=== PATIENT | male | born 1990 | race Caucasian/White ===

== ENCOUNTER 2018-09-06 16:53 | Emergency (ER) | payer SELFPAY ==
[~2018-09-06] VITALS: Ht 170.2 cm; Wt 64.0 kg
[2018-09-06] MEDS ORDERED: HYDROCODONE/ACETAMINOPHEN 5-325 MG TABLET PO ONE (17:45)
[2018-09-06] MEDS ORDERED: KETOROLAC TROMETHAMINE 30 MG/ML VIAL IVP ONE (17:45)
[2018-09-06 18:07] LABS: BASOPHILS % (AUTO) 0.6 % (0.0-2.0); EOSINOPHILS % (AUTO) 0.3 % (1.0-6.0); HEMATOCRIT 39.9 % (41-53); HEMOGLOBIN 13.5 g/dL (13.5-17.5); MEAN CORPUSCULAR HEMOGLOBIN 28.9 pg (26.0-34.0); MEAN CORPUSCULAR HGB CONC 33.9 G/dL (31.0-37.0); MEAN CORPUSCULAR VOLUME 85 fL (80-100); MONOCYTES # (AUTO) 0.8 K/uL (0.1-1.0); MONOCYTES % (AUTO) 6.8 % (2.0-9.0); NEUTROPHILS # (AUTO) 7.6 K/uL (1.8-7.7); NEUTROPHILS % (AUTO) 66.3 % (40.0-70.0); PLATELET COUNT (AUTO) 370 K/uL (150-450); RED BLOOD CELL COUNT(AUTO) 4.69 MIL/uL (4.50-5.90); RED CELL DISTRIBUTION WIDTH 12.2 % (11.5-14.5)
[2018-09-06 18:20] LABS: ANION GAP 10 mmol/L (8-16); CALCIUM, TOTAL 8.9 mg/dL (8.8-10.5); CARBON DIOXIDE 25 mmol/L (22-29); CHLORIDE 100 mmol/L (98-107); GLOMERULAR FILTR. RATE CALC > 60 mL/min (>60); GLUCOSE,RANDOM 93 mg/dL (70-110); POTASSIUM 3.4 mmol/L (3.5-5.1); SODIUM SERUM 135 mmol/L (136-145); UREA NITROGEN, BLOOD 9 mg/dL (7-18)
[2018-09-06 18:25] LABS: ALANINE AMINOTRANSFERASE 18 U/L (12-78); ALBUMIN 3.1 g/dL (3.4-5.0); ALKALINE PHOSPHATASE 77 U/L (46-116); ASPARTATE AMINOTRANSFERASE 11 U/L (15-37); BILIRUBIN,TOTAL 0.2 mg/dL (0.1-1.0); TOTAL PROTEIN, SERUM 7.5 g/dL (6.4-8.2)
[2018-09-06 18:39] LABS: APPEARANCE,URINE CLOUDY (CLEAR); BILIRUBIN,URINE NEGATIVE (NEGATIVE); GLUCOSE, URINE (UA) NEGATIVE (NEGATIVE); KETONES,URINE NEGATIVE (NEGATIVE); LEUKOCYTE ESTERASE ,URINE MODERATE (NEGATIVE); NITRATE,URINE NEGATIVE (NEGATIVE); OCCULT BLOOD,URINE MODERATE (NEGATIVE); PH,URINE 8.5 (5.0-8.0); PROTEIN,URINE SEE CONFIRM (NEGATIVE); UROBILINOGEN,URINE 0.2 mg/dL (<=1.0)
[2018-09-06 18:45] LABS: SULFOSALICYLIC ACID,URINE 2+ (Negative)
[2018-09-06] MEDS ORDERED: LEVOFLOXACIN 500 MG TABLET PO ONE (18:45)
[2018-09-06] MEDS ORDERED: CefTRIAXone 1 GM/DEXTROSE 50 ML IV ONE (18:45)
[2018-09-06 18:47] LABS: WBC,URINE 26-50 /HPF (0-5)
[2018-09-06 18:48] LABS: BACTERIA,URINE Few /HPF (None Seen); SQUAMOUS EPITHELIAL CELL,UR Rare /LPF (None Seen)
[2018-09-06 20:30] VITALS: BP 129/76
== END 2018-09-06 20:43 | disposition home or self-care (01) ==
LOC: EMS 16:54
DX: N45.1 Epididymitis (principal); N34.2 Other urethritis; F12.90 Cannabis use, unspecified, uncomplicated; F15.90 Other stimulant use, unspecified, uncomplicated; F17.210 Nicotine dependence, cigarettes, uncomplicated
CPT/HCPCS: 36415; 76870; 80053; 81001; 85025; 87086; 87491; 87591; 96365; 96375; 99284; J0696; J1885

== ENCOUNTER 2020-10-21 20:46 | Emergency (ER) | payer MEDICAID ==
[~2020-10-21] VITALS: Ht 165.1 cm; Wt 65.9 kg
[2020-10-21] MEDS ORDERED: IBUPROFEN 400 MG TABLET PO ONE (21:00)
[2020-10-21 21:18] LABS: APPEARANCE,URINE CLOUDY (CLEAR); BILIRUBIN,URINE NEGATIVE (NEGATIVE); GLUCOSE, URINE (UA) NEGATIVE (NEGATIVE); KETONES,URINE TRACE mg/dL (NEGATIVE); LEUKOCYTE ESTERASE ,URINE MODERATE (NEGATIVE); NITRATE,URINE NEGATIVE (NEGATIVE); OCCULT BLOOD,URINE MODERATE (NEGATIVE); PROTEIN,URINE SEE CONFIRM (NEGATIVE); UROBILINOGEN,URINE 0.2 mg/dL (<=1.0)
[2020-10-21 21:55] LABS: SULFOSALICYLIC ACID,URINE 2+ (Negative)
[2020-10-21 21:56] LABS: BACTERIA,URINE Few /HPF (None Seen); RBC,URINE 26-50 /HPF (0-2); SQUAMOUS EPITHELIAL CELL,UR Few /LPF (None Seen); WBC,URINE 51-100 /HPF (0-5)
[2020-10-21] MEDS ORDERED: KETOROLAC TROMETHAMINE 30 MG/ML VIAL IM ONE (22:15)
[2020-10-21] MEDS ORDERED: MORPHINE SULFATE 4 MG/ML SYRINGE IVP ONE (22:30)
[2020-10-21] MEDS ORDERED: SODIUM CHLORIDE 0.9% 1,000 ML IV ONE (22:30)
[2020-10-21] MEDS ORDERED: 0.9% SODIUM CHLORIDE 10 ML SYRINGE IVP PRN (22:30)
[2020-10-21] MEDS ORDERED: ONDANSETRON HCL 4 MG/2 ML VIAL IVP ONE (22:30)
[2020-10-21 23:15] LABS: BASOPHILS % (AUTO) 0.3 % (0.0-2.0); EOSINOPHILS % (AUTO) 0.4 % (1.0-6.0); HEMATOCRIT 40.5 % (41-53); HEMOGLOBIN 13.6 g/dL (13.5-17.5); LYMPHOCYTES # (AUTO) 4.2 K/uL (1.0-4.8); LYMPHOCYTES % (AUTO) 29.1 % (22.0-44.0); MEAN CORPUSCULAR HEMOGLOBIN 29.7 pg (26.0-34.0); MEAN CORPUSCULAR HGB CONC 33.5 G/dL (31.0-37.0); MEAN CORPUSCULAR VOLUME 89 fL (80-100); MONOCYTES # (AUTO) 1.2 K/uL (0.1-1.0); MONOCYTES % (AUTO) 7.9 % (2.0-9.0); NEUTROPHILS % (AUTO) 62.3 % (40.0-70.0); PLATELET COUNT (AUTO) 333 K/uL (150-450); RED BLOOD CELL COUNT(AUTO) 4.57 MIL/uL (4.50-5.90); RED CELL DISTRIBUTION WIDTH 13.2 % (11.5-14.5)
[2020-10-21 23:24] LABS: ANION GAP 13 mmol/L (8-16); CALCIUM, TOTAL 8.9 mg/dL (8.8-10.5); CARBON DIOXIDE 24 mmol/L (22-29); CHLORIDE 99 mmol/L (98-107); CREATININE 0.94 mg/dL (0.60-1.30); GLOMERULAR FILTR. RATE CALC > 60 mL/min (>60); GLUCOSE,RANDOM 103 mg/dL (70-110); POTASSIUM 3.7 mmol/L (3.5-5.1); SODIUM SERUM 136 mmol/L (136-145); UREA NITROGEN, BLOOD 16 mg/dL (7-18)
[2020-10-21 23:27] LABS: PROTHROMBIN TIME 10.8 SEC (9.4-11.6)
[2020-10-21 23:30] LABS: ALANINE AMINOTRANSFERASE 47 U/L (12-78); ALBUMIN 4.2 g/dL (3.4-5.0); ALKALINE PHOSPHATASE 75 U/L (46-116); ASPARTATE AMINOTRANSFERASE 23 U/L (15-37); BILIRUBIN,TOTAL 0.4 mg/dL (0.1-1.0); TOTAL PROTEIN, SERUM 7.5 g/dL (6.4-8.2)
[2020-10-21] MEDS ORDERED: LEVOFLOXACIN 250 MG TABLET PO ONE (23:30)
[2020-10-21] MEDS ORDERED: LIDOCAINE/PF 1% 2 ML VIAL IM ONE (23:30)
[2020-10-21] MEDS ORDERED: CefTRIAXone SODIUM 1 GM/VIAL IM ONE (23:30)
[2020-10-21 23:38] LABS: LACTIC ACID < 0.3 mmol/L (0.4-2.0)
[2020-10-21 23:50] VITALS: BP 135/82
== END 2020-10-22 00:17 | disposition home or self-care (01) ==
LOC: EMS 20:46
DX: N34.2 Other urethritis (principal); N45.2 Orchitis; N45.1 Epididymitis; F17.210 Nicotine dependence, cigarettes, uncomplicated; F12.90 Cannabis use, unspecified, uncomplicated; F15.90 Other stimulant use, unspecified, uncomplicated
CPT/HCPCS: 36415; 76870; 80053; 81001; 83605; 85025; 85610; 87040; 87086; 87491; 87591; 96361; 96372; 96374; 96375; 99285; J0696; J2270; J2405; J3490; 81002; 87205

== ENCOUNTER 2020-12-02 19:26 | Inpatient (IN) | payer MEDICAID, OTHER ==
[~2020-12-02] VITALS: Ht 165.1 cm; Wt 67.4 kg
[2020-12-02 20:10] LABS: BASOPHILS % (AUTO) 0.4 % (0.0-2.0); EOSINOPHILS % (AUTO) 1.3 % (1.0-6.0); HEMATOCRIT 39.2 % (41-53); HEMOGLOBIN 13.4 g/dL (13.5-17.5); LYMPHOCYTES # (AUTO) 2.5 K/uL (1.0-4.8); LYMPHOCYTES % (AUTO) 48.3 % (22.0-44.0); MEAN CORPUSCULAR HEMOGLOBIN 30.8 pg (26.0-34.0); MEAN CORPUSCULAR HGB CONC 34.1 G/dL (31.0-37.0); MEAN CORPUSCULAR VOLUME 90 fL (80-100); MONOCYTES # (AUTO) 0.5 K/uL (0.1-1.0); MONOCYTES % (AUTO) 9.8 % (2.0-9.0); NEUTROPHILS # (AUTO) 2.1 K/uL (1.8-7.7); NEUTROPHILS % (AUTO) 40.2 % (40.0-70.0); PLATELET COUNT (AUTO) 235 K/uL (150-450); RED BLOOD CELL COUNT(AUTO) 4.33 MIL/uL (4.50-5.90); RED CELL DISTRIBUTION WIDTH 13.3 % (11.5-14.5)
[2020-12-02 20:18] LABS: ANION GAP 9 mmol/L (8-16); CALCIUM, TOTAL 8.8 mg/dL (8.8-10.5); CARBON DIOXIDE 28 mmol/L (22-29); CHLORIDE 102 mmol/L (98-107); CREATININE 1.01 mg/dL (0.60-1.30); GLOMERULAR FILTR. RATE CALC > 60 mL/min (>60); GLUCOSE,RANDOM 89 mg/dL (70-110); SODIUM SERUM 139 mmol/L (136-145); UREA NITROGEN, BLOOD 12 mg/dL (7-18)
[2020-12-02 20:24] LABS: ALANINE AMINOTRANSFERASE 39 U/L (12-78); ALBUMIN 4.3 g/dL (3.4-5.0); ALKALINE PHOSPHATASE 78 U/L (46-116); ASPARTATE AMINOTRANSFERASE 26 U/L (15-37); BILIRUBIN,TOTAL 0.4 mg/dL (0.1-1.0); TOTAL PROTEIN, SERUM 7.2 g/dL (6.4-8.2)
[2020-12-02 20:29] LABS: COVID AG,FIA SOURCE NASOPHARYNGEAL
[2020-12-02] MEDS ORDERED: ACETAMINOPHEN 325 MG TABLET PO PRN ×2 (20:45→21:30)
[2020-12-02] MEDS ORDERED: ONDANSETRON HCL 4 MG/2 ML VIAL IVP PRN ×2 (20:45→21:30)
[2020-12-02] MEDS ORDERED: DOLU50TA PO (20:47)
[2020-12-02] MEDS ORDERED: TENO300 PO (20:47)
[2020-12-02] MEDS ORDERED: GABA-1181 PO (20:47)
[2020-12-02] MEDS ORDERED: CEPH500C3 PO (20:47)
[2020-12-02] MEDS ORDERED: HYDR-4031 PO (20:47)
[2020-12-02] MEDS ORDERED: HYDR50CA9 PO (20:47)
[2020-12-02] MEDS ORDERED: EPIV150 PO (20:49)
[2020-12-02] MEDS ORDERED: 0.9% SODIUM CHLORIDE 10 ML SYRINGE IVP PRN (21:30)
[2020-12-02 22:00] VITALS: BP 126/72
[2020-12-03] MEDS: HEPARIN SODIUM,PORCINE 5,000 UNITS/ML VIAL SQ SCH ×5 (00:15→23:21)
[2020-12-03 05:14] VITALS: BP 121/60
[2020-12-03 06:59] LABS: THYROID STIMULATING HORMONE 0.87 uIU/mL (0.36-3.74)
[2020-12-03] MEDS: CEPHALEXIN MONOHYDRATE 500 MG CAPSULE PO SCH ×5 (07:53→23:18)
[2020-12-03 08:02] VITALS: BP 108/58
[2020-12-03] MEDS: GABAPENTIN 300 MG CAPSULE PO SCH ×4 (08:34→20:09)
[2020-12-03] MEDS: HydrOXYzine PAMOATE 25 MG CAPSULE PO SCH ×2 (08:34→20:09)
[2020-12-03] MEDS: TENOFOVIR DISOPROXIL FUMARATE 300 MG TABLET PO SCH (08:35)
[2020-12-03] MEDS: DOLUTEGRAVIR SODIUM 50 MG TABLET PO SCH (08:35)
[2020-12-03] MEDS: HydrOXYzine PAMOATE 50 MG CAPSULE PO SCH ×2 (09:27→20:09)
[2020-12-03 10:07] LABS: AMPHET/METH SCREEN,URINE NEGATIVE (NEGATIVE); BARBITURATE SCREEN, URINE NEGATIVE (NEGATIVE); BENZODIAZEPINES SCREEN,URINE NEGATIVE (NEGATIVE); CANNABINOID SCREEN,URINE NEGATIVE (NEGATIVE); COCAINE SCREEN,URINE NEGATIVE (NEGATIVE); METHADONE SCREEN, URINE NEGATIVE (NEGATIVE); OPIATE SCREEN,URINE NEGATIVE (NEGATIVE)
[2020-12-03 10:08] LABS: PHENCYCLIDINE SCREEN,URINE NEGATIVE (NEGATIVE)
[2020-12-03] MEDS: SERTRALINE HCL 50 MG TABLET PO SCH (13:25)
[2020-12-03 19:35] VITALS: BP 110/60
[2020-12-03] MEDS: TraZODone HCL 50 MG TABLET PO PRN (20:08)
[2020-12-04 04:40] VITALS: BP 103/59
[2020-12-04] MEDS: CEPHALEXIN MONOHYDRATE 500 MG CAPSULE PO SCH ×4 (04:40→22:57)
[2020-12-04 07:29] VITALS: BP 110/58
[2020-12-04] MEDS: NEOMYCIN/BACITRACIN/POLYMYXIN B 30 GM OINTMENT TP SCH (08:32)
[2020-12-04] MEDS: HEPARIN SODIUM,PORCINE 5,000 UNITS/ML VIAL SQ SCH ×3 (08:32→23:00)
[2020-12-04] MEDS: DOLUTEGRAVIR SODIUM 50 MG TABLET PO SCH (08:32)
[2020-12-04] MEDS: TENOFOVIR DISOPROXIL FUMARATE 300 MG TABLET PO SCH (08:33)
[2020-12-04] MEDS: HydrOXYzine PAMOATE 25 MG CAPSULE PO SCH ×2 (08:33→20:28)
[2020-12-04] MEDS: GABAPENTIN 300 MG CAPSULE PO SCH ×3 (08:33→20:28)
[2020-12-04] MEDS: SERTRALINE HCL 50 MG TABLET PO SCH (08:33)
[2020-12-04] MEDS: HydrOXYzine PAMOATE 50 MG CAPSULE PO SCH ×2 (08:34→20:28)
[2020-12-04] MEDS: TraZODone HCL 50 MG TABLET PO PRN (20:27)
[2020-12-04 20:29] VITALS: BP 129/75
[2020-12-04 22:23] VITALS: BP 125/74
[2020-12-04] MEDS ORDERED: ASPIRIN 81 MG CHEWABLE TABLET PO ONE (22:30)
[2020-12-04] MEDS ORDERED: NITROGLYCERIN 0.3 MG SUBLINGUAL TABLET #100 SL ONE (23:30)
[2020-12-04 23:51] VITALS: BP 128/76
[2020-12-05] VITALS (7 sets, daily range): BP systolic 99–118; BP diastolic 55–68
[2020-12-05] MEDS: CEPHALEXIN MONOHYDRATE 500 MG CAPSULE PO SCH ×4 (06:16→23:00)
[2020-12-05] MEDS: HEPARIN SODIUM,PORCINE 5,000 UNITS/ML VIAL SQ SCH ×3 (08:21→23:03)
[2020-12-05] MEDS: TENOFOVIR DISOPROXIL FUMARATE 300 MG TABLET PO SCH (08:21)
[2020-12-05] MEDS: HydrOXYzine PAMOATE 25 MG CAPSULE PO SCH ×2 (08:21→21:08)
[2020-12-05] MEDS: DOLUTEGRAVIR SODIUM 50 MG TABLET PO SCH (08:21)
[2020-12-05] MEDS: GABAPENTIN 300 MG CAPSULE PO SCH ×3 (08:21→21:08)
[2020-12-05] MEDS: NEOMYCIN/BACITRACIN/POLYMYXIN B 30 GM OINTMENT TP SCH (08:22)
[2020-12-05] MEDS: HydrOXYzine PAMOATE 50 MG CAPSULE PO SCH ×2 (10:36→21:08)
[2020-12-05] MEDS: LORazepam 0.5 MG TABLET PO PRN (16:52)
[2020-12-05] MEDS: SERTRALINE HCL 50 MG TABLET PO SCH (21:08)
[2020-12-05] MEDS: TraZODone HCL 50 MG TABLET PO PRN (23:01)
[2020-12-06 05:19] VITALS: BP 103/61
[2020-12-06] MEDS: CEPHALEXIN MONOHYDRATE 500 MG CAPSULE PO SCH ×4 (06:33→23:30)
[2020-12-06 07:59] VITALS: BP 94/65
[2020-12-06] MEDS: DOLUTEGRAVIR SODIUM 50 MG TABLET PO SCH (08:33)
[2020-12-06] MEDS: GABAPENTIN 300 MG CAPSULE PO SCH ×4 (08:33→21:00)
[2020-12-06] MEDS: HEPARIN SODIUM,PORCINE 5,000 UNITS/ML VIAL SQ SCH ×2 (08:33→16:00)
[2020-12-06] MEDS: HydrOXYzine PAMOATE 25 MG CAPSULE PO SCH ×2 (08:34→19:57)
[2020-12-06] MEDS: HydrOXYzine PAMOATE 50 MG CAPSULE PO SCH ×2 (08:36→19:57)
[2020-12-06] MEDS: TENOFOVIR DISOPROXIL FUMARATE 300 MG TABLET PO SCH (08:36)
[2020-12-06] MEDS: NEOMYCIN/BACITRACIN/POLYMYXIN B 30 GM OINTMENT TP SCH (09:00)
[2020-12-06] MEDS: LORazepam 0.5 MG TABLET PO PRN ×2 (10:26→16:40)
[2020-12-06 12:11] VITALS: BP 120/76
[2020-12-06 14:56] VITALS: BP 116/68
[2020-12-06 19:15] VITALS: BP 104/60
[2020-12-06] MEDS: SERTRALINE HCL 50 MG TABLET PO SCH (19:57)
[2020-12-06] MEDS: TraZODone HCL 50 MG TABLET PO PRN (19:57)
[2020-12-07] MEDS: LORazepam 0.5 MG TABLET PO PRN ×2 (02:40→10:41)
[2020-12-07] MEDS: CEPHALEXIN MONOHYDRATE 500 MG CAPSULE PO SCH ×4 (05:30→22:59)
[2020-12-07 07:15] VITALS: BP 103/58
[2020-12-07] MEDS: HEPARIN SODIUM,PORCINE 5,000 UNITS/ML VIAL SQ SCH ×4 (08:00→22:59)
[2020-12-07] MEDS: HydrOXYzine PAMOATE 25 MG CAPSULE PO SCH ×2 (08:05→19:31)
[2020-12-07] MEDS: HydrOXYzine PAMOATE 50 MG CAPSULE PO SCH ×2 (08:05→19:31)
[2020-12-07] MEDS: DOLUTEGRAVIR SODIUM 50 MG TABLET PO SCH (08:48)
[2020-12-07] MEDS: TENOFOVIR DISOPROXIL FUMARATE 300 MG TABLET PO SCH (08:48)
[2020-12-07] MEDS: GABAPENTIN 300 MG CAPSULE PO SCH ×3 (08:48→21:00)
[2020-12-07] MEDS: NEOMYCIN/BACITRACIN/POLYMYXIN B 30 GM OINTMENT TP SCH (10:41)
[2020-12-07] MEDS: TraZODone HCL 50 MG TABLET PO SCH (12:31)
[2020-12-07] MEDS ORDERED: ChlorproMAZINE HCL 50 MG/2 ML AMP IM ONE (14:30)
[2020-12-07] MEDS ORDERED: DiphenhydrAMINE HCL 50 MG/ML VIAL IM ONE (14:30)
[2020-12-07 19:19] VITALS: BP 110/60
[2020-12-07] MEDS: TraZODone HCL 50 MG TABLET PO PRN ×2 (19:31→19:33)
[2020-12-07] MEDS: SERTRALINE HCL 50 MG TABLET PO SCH (19:31)
[2020-12-08 03:15] VITALS: BP 112/60
[2020-12-08] MEDS: CEPHALEXIN MONOHYDRATE 500 MG CAPSULE PO SCH ×3 (08:00→17:09)
[2020-12-08] MEDS: HEPARIN SODIUM,PORCINE 5,000 UNITS/ML VIAL SQ SCH ×2 (08:00→16:00)
[2020-12-08 08:10] VITALS: BP 112/62
[2020-12-08] MEDS: HydrOXYzine PAMOATE 25 MG CAPSULE PO SCH ×2 (08:11→20:11)
[2020-12-08] MEDS: TraZODone HCL 50 MG TABLET PO SCH (08:11)
[2020-12-08] MEDS: HydrOXYzine PAMOATE 50 MG CAPSULE PO SCH ×2 (08:11→20:11)
[2020-12-08] MEDS: GABAPENTIN 300 MG CAPSULE PO SCH ×3 (08:15→20:16)
[2020-12-08] MEDS: TENOFOVIR DISOPROXIL FUMARATE 300 MG TABLET PO SCH (08:15)
[2020-12-08] MEDS: DOLUTEGRAVIR SODIUM 50 MG TABLET PO SCH (08:15)
[2020-12-08] MEDS: NEOMYCIN/BACITRACIN/POLYMYXIN B 30 GM OINTMENT TP SCH (14:02)
[2020-12-08 19:59] VITALS: BP 127/63
[2020-12-08] MEDS: SERTRALINE HCL 50 MG TABLET PO SCH (20:11)
[2020-12-08] MEDS: TraZODone HCL 50 MG TABLET PO PRN (20:14)
[2020-12-09 04:56] VITALS: BP 103/64
[2020-12-09] MEDS: CEPHALEXIN MONOHYDRATE 500 MG CAPSULE PO SCH ×3 (05:51→12:00)
[2020-12-09 07:27] VITALS: BP 107/64
[2020-12-09] MEDS: HEPARIN SODIUM,PORCINE 5,000 UNITS/ML VIAL SQ SCH ×2 (08:00)
[2020-12-09] MEDS: NEOMYCIN/BACITRACIN/POLYMYXIN B 30 GM OINTMENT TP SCH ×2 (09:00→13:32)
[2020-12-09] MEDS: GABAPENTIN 300 MG CAPSULE PO SCH (09:00)
[2020-12-09] MEDS: TENOFOVIR DISOPROXIL FUMARATE 300 MG TABLET PO SCH (09:00)
[2020-12-09] MEDS: HydrOXYzine PAMOATE 25 MG CAPSULE PO SCH (09:00)
[2020-12-09] MEDS: DOLUTEGRAVIR SODIUM 50 MG TABLET PO SCH (09:00)
[2020-12-09] MEDS: HydrOXYzine PAMOATE 50 MG CAPSULE PO SCH (09:30)
[2020-12-09] MEDS: TraZODone HCL 50 MG TABLET PO SCH (09:31)
[2020-12-09] MEDS ORDERED: HYDR50CA9 PO (13:03)
[2020-12-09] MEDS ORDERED: NEOM1OIN8 TP (13:08)
[2020-12-09] MEDS ORDERED: [UNRECOGNIZED DRUG - CODE] TP (13:08)
[2020-12-09] MEDS ORDERED: TRAZ-252 PO ×2 (13:10)
[2020-12-09] MEDS ORDERED: ACET-2247 PO (13:11)
== END 2020-12-09 16:57 | DRG 885 ==
LOC: EMS 19:26 → 6S 20:00 → 5S 12-05 00:05 → 6S 12-06 15:00
PROVIDERS: ADMIT Internal Medicine; ATTEND Internal Medicine
DX: F33.2 Major depressive disorder, recurrent severe without psychotic features (principal); Z21 Asymptomatic human immunodeficiency virus [HIV] infection status; F17.210 Nicotine dependence, cigarettes, uncomplicated; F41.9 Anxiety disorder, unspecified; F19.10 Other psychoactive substance abuse, uncomplicated; F12.90 Cannabis use, unspecified, uncomplicated; F15.10 Other stimulant abuse, uncomplicated; S61.512A Laceration without foreign body of left wrist, initial encounter; X78.8XXA Intentional self-harm by other sharp object, initial encounter; Y93.89 Activity, other specified; Y92.89 Other specified places as the place of occurrence of the external cause; Y99.8 Other external cause status; Z20.822 Contact with and (suspected) exposure to COVID-19; N34.2 Other urethritis
CPT/HCPCS: 80053; 84443; 84484; 85025; 93005; 99285; G0480; J1200; J1644; J3230